=== PATIENT | female | born 2000 | race African-American/Black ===

== ENCOUNTER 2019-03-23 20:58 | Inpatient (IN) ==
[2019-03-23] MEDS ORDERED: ONDANSETRON 4 MG/2 ML VIAL IV PRN (21:40)
[2019-03-23] MEDS ORDERED: BUTORPHANOL 1 MG/ML VIAL IV PRN (21:40)
[2019-03-23] MEDS ORDERED: DEXTROSE 5% LACTATED RINGERS 250 ML IV ONE (21:40)
[2019-03-23] MEDS ORDERED: LACTATED RINGERS 1,000 ML IV SCH (22:00)
[2019-03-23 22:08] LABS: Basophils % 0.3 % (0.0-0.8); Eosinophils # 0.1 10*3/uL (0.0-0.87); Eosinophils % 0.7 % (0.00-10.9); Hematocrit 32.3 VOL% (35.7-47.0); Immature Granulocytes % 1.4 %; Immature Granulocytes Absolute 0.16 #; Lymphocytes # 2.2 10*3/uL (1.4-4.0); Lymphocytes % 18.4 % (21.3-54.2); Mean Corpuscular HGB Conc 27.6 GM/DL (32-36); Mean Corpuscular Volume 76.2 FL (87-102); NRBC # 0.05 10*3/uL; Neutrophils % 72.2 % (38.7-73.9); Platelet Count 315 T/CUMM (130-400); Red Blood Count 4.24 MC/CUMM (3.8-5.5); Red Cell Distribution Width 20.5 % (9.3-17.3); White Blood Count 11.7 T/CUMM (4-12)
[2019-03-23 22:09] LABS: Hemoglobin 8.9 GM/DL (12.0-16.0)
[2019-03-23 22:27] LABS: Albumin 2.7 G/DL (3.4-5.0); Bilirubin,Total 0.6 MG/DL (0.2-1.0); Calcium 9.5 MG/DL (8.5-10.1); Osmolality,Calculated 271.7 MOS/KG (273-304); Total Protein 7.3 G/DL (6.4-8.3)
[2019-03-23 23:41] LABS: Anisocytosis 1+; Hypochromasia 1+; Platelet Estimate Adequate; Tear Drop Cells 1+
[2019-03-24] MEDS ORDERED: ceFAZolin 3,000 MG in SYRINGE 1 EACH IV ONE (01:34)
[2019-03-24] MEDS ORDERED: FAMOTIDINE 20 MG/2 ML VIAL IV ONE (01:34)
[2019-03-24] MEDS ORDERED: CITRIC ACID/SODIUM CITRATE 30 ML UDCUP PO ONE (01:34)
[2019-03-24] MEDS ORDERED: OXYTOCIN/LR 20 UNIT/1,000 ML BAG IV ONE ×3 (01:36→02:55)
[2019-03-24] MEDS ORDERED: miSOPROStol 200 MCG TABLET ONE (01:46)
[2019-03-24] MEDS ORDERED: TRANEXAMIC ACID 1,000 MG/10 ML VIAL ONE (01:46)
[2019-03-24] MEDS ORDERED: METHYLERGONOVINE 0.2 MG/1 ML AMP ONE (01:47)
[2019-03-24] MEDS ORDERED: CARBOPROST TROMETHAMINE 250 MCG/ML AMP IM ONE (01:47)
[2019-03-24] MEDS ORDERED: KETOROLAC 60 MG/2 ML VIAL IM ONE (01:57)
[2019-03-24] MEDS ORDERED: OXYTOCIN 10 UNIT/ML VIAL ONE (02:17)
[2019-03-24] MEDS ORDERED: ONDANSETRON 4 MG/2 ML VIAL IV PRN (02:55)
[2019-03-24] MEDS ORDERED: ACETAMINOPHEN 325 MG TABLET PO PRN (02:55)
[2019-03-24] MEDS ORDERED: MEASLES/MUMPS/RUBELLA VACCINE 0.5 ML VIAL SUBCUT ONE (02:55)
[2019-03-24] MEDS ORDERED: oxyCODONE/ACETAMINOPHEN 5-325 MG TABLET PO PRN (02:55)
[2019-03-24] MEDS ORDERED: WITCH HAZEL PADS 100/JAR TOP PRN (02:55)
[2019-03-24] MEDS ORDERED: HYDROCORTISONE 2.5% RECTAL CREAM 30 GM TUBE TOP PRN (02:55)
[2019-03-24] MEDS ORDERED: LANOLIN 50% CREAM 0.3 OZ TUBE TOP PRN (02:55)
[2019-03-24] MEDS ORDERED: DIPH/TET/ACEL PERT BOOSTER VACCINE 0.5 ML VIAL IM ONE (02:55)
[2019-03-24] MEDS ORDERED: BISACODYL 10 MG SUPP RECTAL PRN (02:55)
[2019-03-24] MEDS ORDERED: BENZOCAINE 20%/MENTHOL 0.5% SPRAY 56 GM CAN TOP PRN (02:55)
[2019-03-24] MEDS ORDERED: RHO(D) IMMUNE GLOBULIN 300 MCG SYRINGE IM ONE (02:55)
[2019-03-24 03:21] LABS: Apearance,Urine CLEAR (Clear); Bilirubin,Urine Negative (Negative); Blood, Urine Negative (Negative); Glucose,Urine (UA) Negative (Negative); Ketones,Urine Negative (Negative); Mucus,Urine Occasional /LPF (Occasional); Nitrite,Urine Negative (Negative); Protein,Urine Negative; RBC,Urine 1 /HPF (0-4); Squamous Epithelial Cell,Urine Occasional /HPF (0-10); Urine Color Yellow (Yellow); Urine Urobilinogen < 2.0 EU/DL (0.2-1.0); WBC,Urine 2 /HPF (0-6)
[2019-03-24] MEDS ORDERED: fentaNYL 100 MCG/2 ML VIAL ONE (03:24)
[2019-03-24] MEDS ORDERED: PHENYLEPHRINE 1 MG/10 ML SYRINGE IV ONE (03:24)
[2019-03-24] MEDS ORDERED: GLYCOPYRROLATE 0.4 MG/2 ML VIAL ONE (03:25)
[2019-03-24] MEDS ORDERED: PROPOFOL 200 MG/20 ML VIAL IV ONE (03:25)
[2019-03-24] MEDS ORDERED: MIDAZOLAM 2 MG/2 ML VIAL ONE (03:25)
[2019-03-24] MEDS ORDERED: MORPHINE 10 MG/10 ML VIAL ONE (03:25)
[2019-03-24] MEDS ORDERED: SUCCINYLCHOLINE 200 MG/10 ML VIAL ONE (03:26)
[2019-03-24] MEDS ORDERED: ROCURONIUM 100 MG/10 ML VIAL IV ONE (03:26)
[2019-03-24] MEDS ORDERED: NALOXONE 0.4 MG/ML VIAL IV PRN (03:37)
[2019-03-24 03:41] LABS: Cord Arterial Blood HCO3 22.4 MMOL/L
[2019-03-24] MEDS ORDERED: HYDROmorphone PCA 30 MG/30 ML SYRINGE IV ONE (03:41)
[2019-03-24 03:47] LABS: Cord Venous Blood HCO3 24.9 MMOL/L; Cord Venous Blood PCO2 53.8 MMHG; Cord Venous Blood PO2 33.9 MMHG
[2019-03-24] MEDS ORDERED: HYDROmorphone PCA 30 MG/30 ML SYRINGE IV SCH (04:00)
[2019-03-24 04:59] LABS: Basophils % 0.2 % (0.0-0.8); Eosinophils # 0.1 10*3/uL (0.0-0.87); Eosinophils % 0.5 % (0.00-10.9); Hematocrit 26.6 VOL% (35.7-47.0); Immature Granulocytes % 1.5 %; Immature Granulocytes Absolute 0.21 #; Lymphocytes # 1.8 10*3/uL (1.4-4.0); Lymphocytes % 12.9 % (21.3-54.2); Mean Corpuscular HGB Conc 27.4 GM/DL (32-36); Mean Corpuscular Volume 77.3 FL (87-102); Monocytes % 4.6 % (1.7-12.7); NRBC # 0.04 10*3/uL; Neutrophils % 80.3 % (38.7-73.9); Platelet Count 263 T/CUMM (130-400); Red Blood Count 3.44 MC/CUMM (3.8-5.5); Red Cell Distribution Width 20.4 % (9.3-17.3)
[2019-03-24 05:28] LABS: Anisocytosis 2+; Microcytosis 2+
[2019-03-24 05:29] LABS: Polychromasia Slight
[2019-03-24 05:30] LABS: Hemoglobin 7.3 GM/DL (12.0-16.0); Platelet Estimate Normal; Tear Drop Cells Few
[2019-03-24] MEDS: ceFAZolin 1,000 MG in SYRINGE 1 EACH IV SCH ×2 (11:56→18:46)
[2019-03-24] MEDS: DOCUSATE SODIUM 100 MG CAPSULE PO SCH (20:10)
[2019-03-24] MEDS: IBUPROFEN 800 MG TABLET PO PRN (20:11)
[2019-03-25] MEDS: IBUPROFEN 800 MG TABLET PO PRN (04:05)
[2019-03-25] MEDS: oxyCODONE/ACETAMINOPHEN 5-325 MG TABLET PO PRN ×2 (04:06→13:25)
[2019-03-25] MEDS ORDERED: SIMETHICONE CHEW 80 MG TABLET PO PRN (06:28)
[2019-03-25 06:32] LABS: Eosinophils # 0.1 10*3/uL (0.0-0.87); Eosinophils % 0.8 % (0.00-10.9); Lymphocytes # 1.6 10*3/uL (1.4-4.0); Mean Corpuscular Volume 76.3 FL (87-102)
[2019-03-25 06:52] LABS: Basophils % 0.2 % (0.0-0.8); Hematocrit 25.5 VOL% (35.7-47.0); Immature Granulocytes Absolute 0.14 #; Lymphocytes % 11.2 % (21.3-54.2); Mean Corpuscular HGB Conc 27.8 GM/DL (32-36); Mean Platelet Volume 10.3 FL (9.6-12.0); Monocytes % 6.1 % (1.7-12.7); NRBC # 0.03 10*3/uL; Neutrophils % 80.7 % (38.7-73.9); Platelet Count 265 T/CUMM (130-400); Red Blood Count 3.34 MC/CUMM (3.8-5.5); Red Cell Distribution Width 20.5 % (9.3-17.3); White Blood Count 13.8 T/CUMM (4-12)
[2019-03-25 06:54] LABS: Hemoglobin 7.1 GM/DL (12.0-16.0)
[2019-03-25 07:31] LABS: Hypochromasia 1+; Ovalocytes Slight; Platelet Estimate Adequate
[2019-03-25 07:32] LABS: Microcytosis 1+
[2019-03-25] MEDS: DOCUSATE SODIUM 100 MG CAPSULE PO SCH ×2 (09:03→20:39)
[2019-03-25] MEDS ORDERED: RHO(D) IMMUNE GLOBULIN 300 MCG SYRINGE IM ONE (12:53)
[2019-03-25 14:55] LABS: HIV Antigen/Antibody Result Nonreactive (Nonreactive); Hepatitis B Surface Ag Quant 0.32 Index; Hepatitis B Surface Ag Result Negative (Negative); Rubella Antibody IgG 27.7 IU/ML
[2019-03-26] MEDS: IBUPROFEN 800 MG TABLET PO PRN (03:23)
[2019-03-26] MEDS: DOCUSATE SODIUM 100 MG CAPSULE PO SCH (08:21)
[2019-03-26 12:06] VITALS: BP 131/79
== END 2019-03-26 13:05 | disposition home or self-care (01) | DRG 540 ==
LOC: N.LDOUT 20:58 → N.LD 21:00 → N.OB 03-24 10:39
PROVIDERS: ADMIT Specialist; ATTEND Specialist
PROC: LDCSECT (ICD-10-PCS; 2019-03-24 01:50)

== ENCOUNTER 2021-11-24 11:46 | Inpatient (IN) ==
[2021-11-24] MEDS ORDERED: ONDANSETRON 4 MG/2 ML VIAL IV PRN (13:02)
[2021-11-24] MEDS ORDERED: BUTORPHANOL 2 MG/ML VIAL IV PRN (13:02)
[2021-11-24] MEDS ORDERED: FAMOTIDINE 20 MG/2 ML VIAL IV PRN (13:04)
[2021-11-24] MEDS ORDERED: ceFAZolin 3,000 MG in SYRINGE 1 EACH IV PRN (13:04)
[2021-11-24] MEDS ORDERED: CITRIC ACID/SODIUM CITRATE 30 ML UDCUP PO PRN (13:04)
[2021-11-24] MEDS ORDERED: LACTATED RINGERS 1,000 ML IV SCH (13:30)
[2021-11-24 13:45] LABS: Basophils % 0.2 % (0.0-0.8); Eosinophils # 0.1 10*3/uL (0.0-0.87); Eosinophils % 0.9 % (0.00-10.9); Hematocrit 35.8 VOL% (35.7-47.0); Hemoglobin 10.3 GM/DL (12.0-16.0); Immature Granulocytes % 0.6 %; Immature Granulocytes Absolute 0.05 #; Lymphocytes # 2.6 10*3/uL (1.4-4.0); Lymphocytes % 29.5 % (21.3-54.2); Mean Corpuscular HGB Conc 28.8 GM/DL (32-36); Mean Corpuscular Volume 78.3 FL (87-102); Mean Platelet Volume 11.3 FL (9.6-12.0); Monocytes % 6.3 % (1.7-12.7); Neutrophils % 62.5 % (38.7-73.9); Platelet Count 213 T/CUMM (130-400); Red Blood Count 4.57 MC/CUMM (3.8-5.5)
[2021-11-24] MEDS ORDERED: miSOPROStoL 200 MCG TABLET ONE (13:48)
[2021-11-24] MEDS ORDERED: SODIUM CHLORIDE 0.9% 0 ML IV ONE (13:48)
[2021-11-24] MEDS ORDERED: TRANEXAMIC ACID 1,000 MG/10 ML VIAL ONE (13:48)
[2021-11-24] MEDS ORDERED: METHYLERGONOVINE 0.2 MG/1 ML AMP ONE (13:49)
[2021-11-24] MEDS ORDERED: OXYTOCIN/LR 20 UNIT/1,000 ML BAG IV ONE ×2 (13:49→17:43)
[2021-11-24] MEDS ORDERED: CARBOPROST TROMETHAMINE 250 MCG/ML AMP IM ONE (13:49)
[2021-11-24 13:54] LABS: Albumin 2.4 G/DL (3.4-5.0); Bilirubin,Total 0.6 MG/DL (0.20-1.00); Calcium 8.9 MG/DL (8.5-10.1); Osmolality,Calculated 269.8 MOS/KG (273-304); Potassium 3.9 MMOL/L (3.5-5.1); Total Protein 6.7 G/DL (6.4-8.2)
[2021-11-24] MEDS ORDERED: PHENYLEPHRINE 1 MG/10 ML SYRINGE IV ONE (14:02)
[2021-11-24] MEDS ORDERED: BUPIVACAINE SPINAL 0.75% 2 ML AMP SPINAL ONE (14:02)
[2021-11-24] MEDS ORDERED: ONDANSETRON 4 MG/2 ML VIAL ONE (14:02)
[2021-11-24] MEDS: OXYTOCIN/LR 20 UNIT/1,000 ML BAG IV PRN ×2 (15:00→16:15)
[2021-11-24] MEDS ORDERED: KETOROLAC 30 MG/1 ML VIAL ONE (15:08)
[2021-11-24] MEDS ORDERED: ACETAMINOPHEN INJ 1,000 MG/100 ML VIAL IV ONE (15:08)
[2021-11-24 15:16] LABS: Cord Arterial Blood HCO3 26.8 MMOL/L
[2021-11-24 15:19] LABS: Cord Venous Blood HCO3 24.3 MMOL/L; Cord Venous Blood PCO2 44.9 MMHG; Cord Venous Blood PO2 20.8 MMHG
[2021-11-24] MEDS ORDERED: MIDAZOLAM 2 MG/2 ML VIAL ONE (15:33)
[2021-11-24 16:09] LABS: Bilirubin,Urine Negative (Negative); Blood, Urine Negative (Negative); Glucose,Urine (UA) Negative (Negative); Ketones,Urine Negative (Negative); Mucus,Urine Occasional /LPF (Occasional); Nitrite,Urine Negative (Negative); Protein,Urine Negative; RBC,Urine 3 /HPF (0-4); Urine Appearance CLEAR (Clear); Urine Color Yellow (Yellow); Urine Specific Gravity 1.017 (1.001-1.035); Urine Urobilinogen < 2.0 EU/DL (<2.0)
[2021-11-24] MEDS ORDERED: SIMETHICONE CHEW 80 MG TABLET PO PRN (17:43)
[2021-11-24] MEDS ORDERED: MAGNESIUM HYDROXIDE SUSP 30 ML UDCUP PO PRN (17:43)
[2021-11-24] MEDS: DOCUSATE SODIUM 100 MG CAPSULE PO SCH (21:34)
[2021-11-24] MEDS ORDERED: ceFAZolin 2,000 MG/50 ML DUPLEX IV SCH (22:00)
[2021-11-24] MEDS: ACETAMINOPHEN 500 MG TABLET PO SCH (22:41)
[2021-11-24] MEDS: KETOROLAC 30 MG/1 ML VIAL IV SCH (22:42)
[2021-11-24] MEDS ORDERED: KETOROLAC 30 MG/1 ML VIAL IV SCH (23:00)
[2021-11-24] MEDS ORDERED: ACETAMINOPHEN 500 MG TABLET PO SCH (23:00)
[2021-11-24 23:34] LABS: Basophils % 0.1 % (0.0-0.8); Eosinophils % 0.4 % (0.00-10.9); Hemoglobin 8.6 GM/DL (12.0-16.0); Immature Granulocytes % 0.5 %; Immature Granulocytes Absolute 0.05 #; Lymphocytes # 2.1 10*3/uL (1.4-4.0); Lymphocytes % 21.7 % (21.3-54.2); Mean Corpuscular HGB Conc 29.7 GM/DL (32-36); Mean Corpuscular Volume 76.1 FL (87-102); Mean Platelet Volume 11.4 FL (9.6-12.0); Neutrophils % 71.3 % (38.7-73.9); Platelet Count 205 T/CUMM (130-400); Red Blood Count 3.81 MC/CUMM (3.8-5.5); White Blood Count 9.5 T/CUMM (4-12)
[2021-11-25 05:44] LABS: Basophils % 0.2 % (0.0-0.8); Eosinophils # 0.1 10*3/uL (0.0-0.87); Eosinophils % 0.7 % (0.00-10.9); Hematocrit 29.9 VOL% (35.7-47.0); Hemoglobin 8.8 GM/DL (12.0-16.0); Immature Granulocytes % 0.6 %; Immature Granulocytes Absolute 0.05 #; Lymphocytes % 22.4 % (21.3-54.2); Mean Corpuscular HGB Conc 29.4 GM/DL (32-36); Mean Corpuscular Volume 76.3 FL (87-102); Mean Platelet Volume 11.1 FL (9.6-12.0); Monocytes % 8.3 % (1.7-12.7); Neutrophils % 67.8 % (38.7-73.9); Platelet Count 172 T/CUMM (130-400); Red Blood Count 3.92 MC/CUMM (3.8-5.5); White Blood Count 8.7 T/CUMM (4-12)
[2021-11-25] MEDS: ACETAMINOPHEN 500 MG TABLET PO SCH ×2 (06:55→15:02)
[2021-11-25] MEDS: KETOROLAC 30 MG/1 ML VIAL IV SCH ×2 (06:56→15:01)
[2021-11-25] MEDS ORDERED: diphenhydrAMINE CAP 25 MG CAPSULE PO PRN (08:38)
[2021-11-25] MEDS: DOCUSATE SODIUM 100 MG CAPSULE PO SCH ×2 (08:40→21:06)
[2021-11-25] MEDS: MULTIVITAMIN (PRENATAL) TABLET PO SCH (08:41)
[2021-11-25] MEDS ORDERED: RHO(D) IMMUNE GLOBULIN 300 MCG SYRINGE IM ONE (21:00)
[2021-11-25] MEDS: IBUPROFEN 800 MG TABLET PO PRN (21:05)
[2021-11-26] MEDS: IBUPROFEN 800 MG TABLET PO PRN (05:49)
[2021-11-26 07:23] VITALS: BP 131/69
[2021-11-26] MEDS: DOCUSATE SODIUM 100 MG CAPSULE PO SCH (08:20)
[2021-11-26] MEDS: MULTIVITAMIN (PRENATAL) TABLET PO SCH (08:20)
[2021-11-26] MEDS ORDERED: FERROUS SULFATE 325 MG TABLET PO SCH (09:00)
[2021-11-26] MEDS ORDERED: INFLUENZA VIRUS VACCINE 0.5 ML SYRINGE IM ONE (09:00)
== END 2021-11-26 12:25 | disposition home or self-care (01) | DRG 540 ==
LOC: N.LDOUT 11:46 → N.LD 11:47 → N.OB 17:59
PROVIDERS: ADMIT Obstetrics & Gynecology; ATTEND Obstetrics & Gynecology
PROC: LDCSECT (ICD-10-PCS; 2021-11-24 14:15)